=== PATIENT | male | born 1945 | race Caucasian/White ===

== ENCOUNTER 2023-09-01 16:02 | Inpatient (IN) | payer OTHER, BC ==
[2023-09-01 16:24] VITALS: BMI 28.2
[2023-09-01] MEDS ORDERED: SODIUM CHLORIDE 500 ML IV STA (16:41)
[2023-09-01] MEDS ORDERED: ASPIRIN 81 MG CHEWABLE TABLETS PO ONE (16:41)
[2023-09-01] MEDS ORDERED: ASPIRIN 81 MG CHEWABLE TABLETS ONE (17:16)
[2023-09-01 17:29] LABS: EOS % 2.1 % (0-4.5); HEMATOCRIT 41.5 % (35.4-49); HEMOGLOBIN 14.1 GM/dL (11.7-16.9); INR 1.09 (0.83-1.09); LYMPH % 34.7 % (8-40); MCH 30.3 pg (25.7-33.7); MCHC 33.8 g/dl (32.0-35.9); MEAN CELL VOLUME 89.4 fl (80-96); MEAN PLT VOLUME 7.9 fl (7.5-11.1); MONO % 6.2 % (3.8-10.2); PLATELET COUNT 197 10^3/uL (134-434); PROTHROMBIN TIME (PATIENT) 12.6 SEC (9.7-13.0); RBC 4.65 M/mm3 (4.00-5.60); WHITE BLOOD COUNT 8.5 K/mm3 (4.0-10.0)
[2023-09-01 17:31] LABS: ACTIVATED PTT 29.3 SECONDS (25.2-36.5)
[2023-09-01 17:47] LABS: CALCIUM 8.7 mg/dL (8.5-10.1)
[2023-09-01 17:49] LABS: ALBUMIN 3.5 g/dl (3.4-5.0); BLOOD UREA NITROGEN 17.2 mg/dL (7-18); MAGNESIUM 1.8 mg/dL (1.8-2.4)
[2023-09-01 17:52] LABS: CREATININE 0.7 mg/dL (0.55-1.3)
[2023-09-01 17:53] LABS: BILIRUBIN,TOTAL 0.6 mg/dL (0.2-1); TOT PROT 6.4 g/dl (6.4-8.2)
[2023-09-01] MEDS ORDERED: HEPARIN NA (PORCINE) 5,000 UNITS/ML 1ML VIAL IVPUSH ONE (18:12)
[2023-09-01] MEDS ORDERED: HEPARIN NA (PORCINE) 5,000 UNITS/ML 1ML VIAL IVPUSH PRN (18:12)
[2023-09-01] MEDS ORDERED: HEPARIN INFUSION - 25,000 UNITS/500 ML INFUS.BAG IVPB SCH (18:15)
[2023-09-01] MEDS ORDERED: morphine CARPU-JECT 2 MG/1 ML DISP.SYRIN IVPUSH ONE (18:18)
[2023-09-01] MEDS ORDERED: CLOPIDOGREL BISULFATE 300 MG TABLET PO ONE ×2 (18:28→21:00)
[2023-09-01] MEDS ORDERED: ISOSORBIDE MONONITRATE 30 MG TAB.SR.24H (FP) PO ONE ×2 (18:29→18:46)
[2023-09-01] MEDS ORDERED: CLOPIDOGREL BISULFATE 300 MG TABLET ONE ×2 (18:46→21:23)
[2023-09-01] MEDS ORDERED: ATORVASTATIN CA 80 MG TABLET (FP) ONE (21:23)
[2023-09-01] MEDS ORDERED: ATORVASTATIN CA 80 MG TABLET (FP) PO SCH (22:00)
[2023-09-01] MEDS: CARVEDILOL 6.25 MG TABLET (FP) PO SCH (23:01)
[2023-09-02] MEDS ORDERED: HEPARIN INFUSION - 25,000 UNITS/500 ML INFUS.BAG IVPB SCH (05:11)
[2023-09-02 08:28] VITALS: TEMP 97.6
[2023-09-02] MEDS ORDERED: TAMSULOSIN HCL 0.4 MG CAP PO SCH (08:30)
[2023-09-02] MEDS ORDERED: HYDROCHLOROTHIAZIDE 25 MG TABLET (FP) ONE (08:50)
[2023-09-02] MEDS ORDERED: TAMSULOSIN HCL 0.4 MG CAP ONE (08:51)
[2023-09-02] MEDS ORDERED: ASPIRIN 81 MG CHEWABLE TABLETS ONE (08:51)
[2023-09-02] MEDS ORDERED: LOSARTAN POTASSIUM 50 MG TABLET ONE (08:51)
[2023-09-02] MEDS ORDERED: CLOPIDOGREL BISULFATE 75 MG TABLET (FP) ONE (08:51)
[2023-09-02] MEDS ORDERED: CARVEDILOL 6.25 MG TABLET (FP) ONE (08:51)
[2023-09-02 09:01] LABS: BASO % 0.7 % (0-2.0); EOS % 1.9 % (0-4.5); HEMATOCRIT 39.5 % (35.4-49); HEMOGLOBIN 13.3 GM/dL (11.7-16.9); LYMPH % 27.6 % (8-40); MCH 30.2 pg (25.7-33.7); MCHC 33.5 g/dl (32.0-35.9); MEAN CELL VOLUME 90.1 fl (80-96); MEAN PLT VOLUME 8.5 fl (7.5-11.1); MONO % 6.4 % (3.8-10.2); NEUT % 63.4 % (42.8-82.8); PLATELET COUNT 180 10^3/uL (134-434); RBC 4.39 M/mm3 (4.00-5.60)
[2023-09-02] MEDS: CARVEDILOL 6.25 MG TABLET (FP) PO SCH (09:14)
[2023-09-02 09:21] LABS: POTASSIUM 3.6 mmol/L (3.5-5.1)
[2023-09-02 09:28] LABS: CREATININE 0.7 mg/dL (0.55-1.3)
[2023-09-02 09:29] LABS: ALBUMIN 3.1 g/dl (3.4-5.0)
[2023-09-02 09:30] LABS: BILIRUBIN,TOTAL 0.8 mg/dL (0.2-1); TOT PROT 5.5 g/dl (6.4-8.2)
[2023-09-02 09:31] LABS: CALCIUM 8.8 mg/dL (8.5-10.1); MAGNESIUM 1.8 mg/dL (1.8-2.4); PHOSPHOROUS 3.1 mg/dL (2.5-4.9)
[2023-09-02] MEDS ORDERED: FINASTERIDE 5 MG TABLET (FP) PO SCH (10:00)
[2023-09-02] MEDS ORDERED: CHOLECALCIFEROL (VIT D3) 5000 UNITS (125 MCG) CAP PO SCH (10:00)
[2023-09-02] MEDS ORDERED: ASPIRIN 81 MG CHEWABLE TABLETS PO SCH (10:00)
[2023-09-02] MEDS ORDERED: HYDROCHLOROTHIAZIDE 25 MG TABLET (FP) PO SCH (10:00)
[2023-09-02] MEDS ORDERED: ENOXAPARIN NA (PORCINE) 40 MG/0.4 ML DISP.SYRIN SQ SCH (10:00)
[2023-09-02] MEDS ORDERED: CLOPIDOGREL BISULFATE 75 MG TABLET (FP) PO SCH (10:00)
[2023-09-02] MEDS ORDERED: LOSARTAN POTASSIUM 50 MG TABLET PO SCH (10:00)
[2023-09-02 11:08] VITALS: RESP 16
[2023-09-02 16:20] VITALS: BP 105/50; PULSE 47
== END 2023-09-02 17:00 | disposition short-term general hospital (02) | DRG 282 ==
LOC: JER 16:02 → INTOOBSV 18:44 → JERBED 18:44 → OBSVTOIN 09-02 09:36
PROVIDERS: ADMIT Student in an Organized Health Care Education/Training Program; ATTEND Internal Medicine
DX: I21.4 Non-ST elevation (NSTEMI) myocardial infarction (principal); I25.10 Atherosclerotic heart disease of native coronary artery without angina pectoris; E78.5 Hyperlipidemia, unspecified; N40.0 Benign prostatic hyperplasia without lower urinary tract symptoms; R07.89 Other chest pain; R00.1 Bradycardia, unspecified; I25.2 Old myocardial infarction; I10 Essential (primary) hypertension; Z95.5 Presence of coronary angioplasty implant and graft
CPT/HCPCS: 0241U-QW; 36415; 71046-TC-FY; 80053; 83735; 84100; 84484; 85025; 85610; 85730; 93005; 93010; 93306-TC; 99285-25; G0378; J1644